=== PATIENT | female | born 1960 | race Caucasian/White ===

== ENCOUNTER 2019-02-09 22:25 | Inpatient (IN) | payer MEDICAID, OTHER ==
--- NOTE | 2019-02-09 22:29 | ED ---
Psych HPI - General Stated Complaint: Mental Health Time Seen by Provider: 02/09/19 22:29 - History of Present Illness Initial Comments: Marah is a 58-year-old female with a long-standing history of bipolar disorder with occasional manic episodes. Patient presents the emergency department today with police escort for evaluation of manic episode. Patient states that she has not slept in 3 nights she's been awake for 4 straight days, she states that she just can't sleep and she is feeling manic. Patient is having difficulty explaining exactly how she is feeling. at bedside states that this is similar to previous manic episodes. Daughter arrived at bedside and states that she believes her mother hasn't been sleeping in his been acting manic. She states her mom just seems to have rapid thoughts and inability to maintain a train of thought. She states that 2 times today her mother put a pot on the stove and turned the fire on but then left the room and forgot about it. In addition she states that at one point her mom used a grape cutter to light of these cardboard began smoking it. Patient reports she may have missed a couple of days of her Depakote. She reports that she otherwise tries to be compliant. She admits to occasionally smoking marijuana but denies any other drug use. - Related Data Home Medications Medication Instructions Recorded Confirmed Divalproex ER [Depakote ER] 1,500 mg PO DAILY 02/09/19 02/09/19 Divalproex Sodium [Depakote ER] 250 mg PO HS 02/09/19 02/09/19 Gabapentin [Neurontin] 300 mg PO BID 02/09/19 02/09/19 Gabapentin [Neurontin] 900 mg PO HS 02/09/19 02/09/19 Gemfibrozil [Lopid] 600 mg PO BID 02/09/19 02/09/19 Levothyroxine Sodium 100 mcg PO DAILY 02/09/19 02/09/19 OLANZapine [ZyPREXA] 5 mg PO HS 02/09/19 02/09/19 OLANZapine [ZyPREXA] 20 mg PO HS 02/09/19 02/09/19 Omeprazole [PriLOSEC] 20 mg PO DAILY 02/09/19 02/09/19 oxyCODONE HCL/ACETAMINOPHEN 1 tab PO Q6HR PRN 02/09/19 02/09/19 [Percocet 10-325 mg] Allergies Allergy/AdvReac Type Severity Reaction Status Date / Time No Known Allergies Allergy Verified 02/09/19 22:41 Review of Systems ROS Statement: Those systems with pertinent positive or pertinent negative responses have been documented in the HPI. ROS Other: All systems not noted in ROS Statement are negative. General Exam - General Exam Comments Initial Comments: Physical Exam GENERAL: Patient is well-developed and well-nourished. Patient is nontoxic and well-hydrated and is in no distress. HENT: Normocephalic, Atraumatic. EYES: PERRL, EOMI PULMONARY: Unlabored respirations. No audible rales rhonchi or wheezing was noted. CARDIOVASCULAR: There is a regular rate and rhythm without any murmurs gallops or rubs. ABDOMEN: Soft and nontender with normal bowel sounds. SKIN: Skin is clear with no lesions or rashes and otherwise unremarkable. : Deferred NEUROLOGIC: Patient is alert and oriented x3 Moving all extremities spontaneously MUSCULOSKELETAL: Normal extremities with adequate strength and full range of motion. No lower extremity swelling or edema. No calf tenderness. PSYCHIATRIC: Patient seems manic, has flight of ideas rapidly fluctuating thoughts Denies any suicidal or homicidal ideations Course Vital Signs 02/09/19 02/10/19 22:29 00:51 Temperature 96.9 F L Pulse Rate 69 77 Respiratory 18 19 Rate Blood Pressure 144/96 132/71 O2 Sat by Pulse 94 L 96 Oximetry Medical Decision Making - Medical Decision Making Patient was seen and evaluated history is obtained from patient, and daughter bedside sinus 58 her old female with a history of bipolar disorder reports she's been compliant with her medications but seems to be manic at this time she's having some rapidly processing thoughts, some thought blocking, memory issues. Patient denies suicidal or homicidal ideations but does appear to be manic. Labs are ordered patient's valproic acid level is within therapeutic range her labs are otherwise relatively unremarkable and the patient is medically cleared for evaluation by EPS she was evaluated by EPS they agree the patient requires inpatient psychiatric evaluation. Patient was petitioned by her daughter I completed the medical certification. Patient be admitted to our psychiatric unit. - Lab Data Result diagrams: 02/09/19 22:50 02/09/19 22:50 Lab Results 02/09/19 02/09/19 02/10/19 Range/Units 22:50 22:50 00:30 WBC 13.7 H (3.8-10.6) k/uL RBC 4.10 (3.80-5.40) m/uL Hgb 13.5 (11.4-16.0) gm/dL Hct 40.5 (34.0-46.0) % MCV 98.8 (80.0-100.0) fL MCH 33.0 (25.0-35.0) pg MCHC 33.4 (31.0-37.0) g/dL RDW 14.7 (11.5-15.5) % Plt Count 374 (150-450) k/uL Neutrophils % 54 % Lymphocytes % 33 % Monocytes % 6 % Eosinophils % 4 % Basophils % 1 % Neutrophils # 7.3 (1.3-7.7) k/uL Lymphocytes # 4.5 (1.0-4.8) k/uL Monocytes # 0.9 (0-1.0) k/uL Eosinophils # 0.6 (0-0.7) k/uL Basophils # 0.1 (0-0.2) k/uL Macrocytosis Slight Sodium 141 (137-145) mmol/L Potassium 4.6 (3.5-5.1) mmol/L Chloride 106 (98-107) mmol/L Carbon Dioxide 23 (22-30) mmol/L Anion Gap 12 mmol/L BUN 15 (7-17) mg/dL Creatinine 1.39 H (0.52-1.04) mg/dL Est GFR (CKD-EPI)AfAm 49 (>60 ml/min/1.73 sqM) Est GFR (CKD-EPI)NonAf 43 (>60 ml/min/1.73 sqM) Glucose 102 H (74-99) mg/dL Calcium 10.2 (8.4-10.2) mg/dL Total Bilirubin 0.7 (0.2-1.3) mg/dL AST 21 (14-36) U/L ALT 11 (9-52) U/L Alkaline Phosphatase 75 (38-126) U/L Total Protein 7.7 (6.3-8.2) g/dL Albumin 4.7 (3.5-5.0) g/dL TSH 1.820 (0.465-4.680) mIU/L Urine Opiates Screen Not Detected (NotDetected) Ur Oxycodone Screen Not Detected (NotDetected) Urine Methadone Screen Not Detected (NotDetected) Ur Propoxyphene Screen Not Detected (NotDetected) Ur Barbiturates Screen Not Detected (NotDetected) Valproic Acid 72.9 ug/mL U Tricyclic Antidepress Detected H (NotDetected) Ur Phencyclidine Scrn Not Detected (NotDetected) Ur Amphetamines Screen Not Detected (NotDetected) U Methamphetamines Scrn Not Detected (NotDetected) U Benzodiazepines Scrn Not Detected (NotDetected) Urine Cocaine Screen Not Detected (NotDetected) U Marijuana (THC) Screen Detected H (NotDetected) Disposition Clinical Impression: Tonya Disposition: TRANSFER TO PSYCH HOSP/UNIT Referrals: Hakeem Kelly MD [Primary Care Provider] - 1-2 days
[2019-02-09 23:10] LABS: Basophils # (A) 0.1 k/uL (0-0.2); Basophils % (A) 1 %; Eosinophils # (A) 0.6 k/uL (0-0.7); Eosinophils % (A) 4 %; HCT 40.5 % (34.0-46.0); HGB 13.5 gm/dL (11.4-16.0); Lymphocytes # (A) 4.5 k/uL (1.0-4.8); Lymphocytes % (A) 33 %; MCHC 33.4 g/dL (31.0-37.0); MCV 98.8 fL (80.0-100.0); Macrocytosis Slight; Mean Platelet Volume 7.8; Monocytes # (A) 0.9 k/uL (0-1.0); Monocytes % (A) 6 %; Neutrophils # (A) 7.3 k/uL (1.3-7.7); Neutrophils % (A) 54 %; Platelet Count 374 k/uL (150-450); RDW 14.7 % (11.5-15.5); WBC 13.7 k/uL (3.8-10.6)
[2019-02-09 23:16] LABS: Albumin 4.7 g/dL (3.5-5.0); Calcium 10.2 mg/dL (8.4-10.2); Total Bilirubin 0.7 mg/dL (0.2-1.3); Total Protein 7.7 g/dL (6.3-8.2)
[2019-02-09 23:21] LABS: Valproic Acid (Depakene) 72.9 ug/mL
[2019-02-09 23:35] LABS: Potassium 4.6 mmol/L (3.5-5.1)
[2019-02-10] MEDS ORDERED: SODIUM CHLORIDE 0.9% 1,000 ML IV ONE (00:21)
[2019-02-10 01:17] LABS: Amphetamine Screen,Urine Not Detected (NotDetected); Barbiturate Screen,Urine Not Detected (NotDetected); Benzodiazepines Screen,Urine Not Detected (NotDetected); Cocaine Screen,Urine Not Detected (NotDetected); Methadone Screen, Urine Not Detected (NotDetected); Opiate Screen,Urine Not Detected (NotDetected); Oxycodone Screen, Urine Not Detected (NotDetected); Phencyclidine Screen,Urine Not Detected (NotDetected); Tricyclic Antidepressant,Urine Detected (NotDetected); Urn Cannabinoid Scrn Detected (NotDetected)
[2019-02-10] MEDS ORDERED: LORazepam 1 MG TAB PO PRN (05:00)
[2019-02-10] MEDS ORDERED: MAG HYDROX/AL HYDROX/SIMETH 30 ML CUP PO PRN (08:00)
[2019-02-10] MEDS ORDERED: ZIPRASIDONE 20 MG VIAL IM PRN (09:00)
[2019-02-10] MEDS ORDERED: MAGNESIUM HYDROXIDE 2,400 MG/10 ML CUP PO PRN (09:00)
[2019-02-10] MEDS: NICOTINE 21MG/24HR PATCH TRANSDERM SCH (10:11)
[2019-02-10] MEDS: ACETAMINOPHEN TAB 325 MG TAB PO PRN ×2 (10:11→16:37)
--- NOTE | 2019-02-10 10:29 | P.HP ---
Psychiatric H&P - . History & Physical: Allergies Allergy/AdvReac Type Severity Reaction Status Date / Time No Known Allergies Allergy Verified 02/09/19 22:41 Vital Signs Temp 96.8 F L 02/10/19 05:07 Pulse 86 02/10/19 05:07 Resp 20 02/10/19 05:07 BP 133/80 02/10/19 05:07 Pulse Ox 96 02/10/19 00:51 Intake & Output 02/09/19 02/10/19 02/10/19 18:59 06:59 18:59 Weight 78.925 kg Laboratory Last Values WBC 13.7 k/uL (3.8-10.6) H 02/09/19 22:50 RBC 4.10 m/uL (3.80-5.40) 02/09/19 22:50 Hgb 13.5 gm/dL (11.4-16.0) 02/09/19 22:50 Hct 40.5 % (34.0-46.0) 02/09/19 22:50 MCV 98.8 fL (80.0-100.0) 02/09/19 22:50 MCH 33.0 pg (25.0-35.0) 02/09/19 22:50 MCHC 33.4 g/dL (31.0-37.0) 02/09/19 22:50 RDW 14.7 % (11.5-15.5) 02/09/19 22:50 Plt Count 374 k/uL (150-450) 02/09/19 22:50 Neutrophils % 54 % 02/09/19 22:50 Lymphocytes % 33 % 02/09/19 22:50 Monocytes % 6 % 02/09/19 22:50 Eosinophils % 4 % 02/09/19 22:50 Basophils % 1 % 02/09/19 22:50 Neutrophils # 7.3 k/uL (1.3-7.7) 02/09/19 22:50 Lymphocytes # 4.5 k/uL (1.0-4.8) 02/09/19 22:50 Monocytes # 0.9 k/uL (0-1.0) 02/09/19 22:50 Eosinophils # 0.6 k/uL (0-0.7) 02/09/19 22:50 Basophils # 0.1 k/uL (0-0.2) 02/09/19 22:50 Macrocytosis Slight 02/09/19 22:50 Sodium 141 mmol/L (137-145) 02/09/19 22:50 Potassium 4.6 mmol/L (3.5-5.1) 02/09/19 22:50 Chloride 106 mmol/L (98-107) 02/09/19 22:50 Carbon Dioxide 23 mmol/L (22-30) 02/09/19 22:50 Anion Gap 12 mmol/L 02/09/19 22:50 BUN 15 mg/dL (7-17) 02/09/19 22:50 Creatinine 1.39 mg/dL (0.52-1.04) H 02/09/19 22:50 Est GFR (CKD-EPI)AfAm 49 (>60 ml/min/1.73 sqM) 02/09/19 22:50 Est GFR (CKD-EPI)NonAf 43 (>60 ml/min/1.73 sqM) 02/09/19 22:50 Glucose 102 mg/dL (74-99) H 02/09/19 22:50 Calcium 10.2 mg/dL (8.4-10.2) 02/09/19 22:50 Total Bilirubin 0.7 mg/dL (0.2-1.3) 02/09/19 22:50 AST 21 U/L (14-36) 02/09/19 22:50 ALT 11 U/L (9-52) 02/09/19 22:50 Alkaline Phosphatase 75 U/L (38-126) 02/09/19 22:50 Total Protein 7.7 g/dL (6.3-8.2) 02/09/19 22:50 Albumin 4.7 g/dL (3.5-5.0) 02/09/19 22:50 TSH 1.820 mIU/L (0.465-4.680) 02/09/19 22:50 Urine Opiates Screen Not Detected (NotDetected) 02/10/19 00:30 Ur Oxycodone Screen Not Detected (NotDetected) 02/10/19 00:30 Urine Methadone Screen Not Detected (NotDetected) 02/10/19 00:30 Ur Propoxyphene Screen Not Detected (NotDetected) 02/10/19 00:30 Ur Barbiturates Screen Not Detected (NotDetected) 02/10/19 00:30 Valproic Acid 72.9 ug/mL 02/09/19 22:50 U Tricyclic Antidepress Detected (NotDetected) H 02/10/19 00:30 Ur Phencyclidine Scrn Not Detected (NotDetected) 02/10/19 00:30 Ur Amphetamines Screen Not Detected (NotDetected) 02/10/19 00:30 U Methamphetamines Scrn Not Detected (NotDetected) 02/10/19 00:30 U Benzodiazepines Scrn Not Detected (NotDetected) 02/10/19 00:30 Urine Cocaine Screen Not Detected (NotDetected) 02/10/19 00:30 U Marijuana (THC) Screen Detected (NotDetected) H 02/10/19 00:30 02/10/19 10:19 IDENTIFYING DATA: This patient is a 58-year-old female who was admitted to the mental health unit through the emergency room on a petition and clinical certificate for symptoms of barbara and psychosis. HPI: He patient presents with a petition completed by her daughter stating "misplacing objects, lighting stove and leaving unattended, lighting paper from a candle and attempting to smoke". The patient's carries a diagnosis of bipolar 1 disorder. She states that she hasn't slept in 3 days her thoughts are racing. She describes her energy is adequate appetite is adequate. She endorses tearfulness once a week. She is reporting no suicidal or homicidal ideation intent or plan. She endorses an auditory hallucination described as hearing the radio but can't make out any words. She denies any command auditory hallucinations. She reports no visual hallucinations. She indicates feeling safe here in the hospital. She was observed throughout the morning walking around the unit appearing confused caring a handful of papers and 2 cups. She spontaneously makes random statements throughout our interaction. She endorses a history of manic episodes in the past. She resides with her and states that she has no firearms at home. PAST PSYCHIATRIC HISTORY: She reports a history of multiple inpatient psychiatric admissions greater than 10. She is unaware of when the last admission was. She endorses no history of suicide attempts. Outpatient care is at [facility]. She works with Wanda Syeda for medication management. She is currently on Zyprexa 25 mg at bedtime Depakote ER 1750 mg at bedtime. She indicates having some difficulties maintaining her medications every night. Her Depakote level was drawn and was found to be 72.9. Liver enzymes within normal limits. She states she was on lithium in the past but this caused what appears to be diabetes insipidus. PMH: History of knee injury at age 16 with subsequent pain she apparently sees Dr. 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 She reports no use of alcohol however she does have a history of DUI in 2003. FAMILY PSYCHIATRIC HISTORY: She states that her identical twin sister has bipolar disorder another sister has bipolar disorder as well as a niece, no suicides in the family FAMILY CHEMICAL DEPENDENCY HISTORY: Unknown SOCIAL HISTORY: The patient is 58 years old she states she's been for 7- 8 months but has been with her for 11 years. She states she has 3 adult children ages 24, 26, 28. She resides with her . She is unemployed. She has no history of experience. She graduated high school and earned a bachelors in psychology at [employer]. She is originally from [place]. She reports no abuse history, she only reports the DUI in 2003 in terms of legal history. MENTAL STATUS EXAM: The patient is a disheveled appearing female. She is dressed in hospital gowns. She is wearing eyeglasses. Her hair is pulled back. Eye contact and be staring in nature. Affect is bland. She frequently manipulates the papers that she is holding at times she drops them. She appears distracted and disorganized. She endorses racing thoughts. She reports her mood is "fine". She lacks insight into why she was admitted in states because my wanted. She is reporting no suicidal or homicidal thoughts. She endorses an auditory hallucination that appears to be chronic in the form of hearing "the radio". She states that she does not make out any words and she is experiencing no command auditory hallucinations. She is reporting no visual hallucinations. She indicates feeling safe here in the hospital and denies having any specific delusions but she appears to be an invalid historian at this time. Insight and judgment are impaired. She states that she was to be discharged within 72 hours. She demonstrates no verbal or physical aggressiveness. She does have spontaneous speech she demonstrates loose associations and flight of ideas at times. She demonstrates no involuntary repetitive movements. STRENGTHS/WEAKNESSES: Strengths: [facility] health follow-up weaknesses: Acute symptoms of barbara INTELLECTUAL FUNCTIONING: Average IMPRESSIONS: [] 1. Bipolar 1 disorder most recent manic with psychosis, cannabis use disorder, rule out opiate use disorder PLAN: The patient has been admitted to the mental health unit on a petition and clinical certificate. She is not able to discuss the reasons for this admission or her treatment options and unreliable rational manner. I will complete a second clinical certificate. She will be seen by internal medicine for routine history and physical exam. She will be seen by social work for a psychosocial assessment and begin discharge planning. We will monitor her for safety and encourage participation in the milieu. We will involve her family in treatment and discharge planning as she will allow.
--- NOTE | 2019-02-10 20:30 | P.MDCNMH ---
History of Present Illness H&P Date: 02/10/19 Chief Complaint: Medical management 58-year-old female with history of bipolar disorder When asked patient is not sure why she is in the hospital she thinks probably she is going through a manic episodes and family has brought her to the hospital. Otherwise she is feeling fine she denies any chest pain trouble breathing shortness of breath fevers or chills eyes any sore throat abdominal pain back pain. He denies any GI bleeding. She reports that she is urinating fine denies any hematuria dysuria frequency. Patient reports history of hypothyroidism compliant with her medications. And history of GERD taking omeprazole. Currently patient denies any suicidal or homicidal ideation. Per ER notes daughter has brought the patient because she hasn't slept for 3 nights, and having rapid thoughts which is typical of her manic episodes. She brought her for psychiatric evaluation Review of Systems Pertinent positives as noted in HPI. All other systems were reviewed and are negative Past Medical History Past Medical History: Thyroid Disorder Additional Past Medical History / Comment(s): hypothyroidism History of Any Multi-Drug Resistant Organisms: None Reported Past Surgical History: Back Surgery, Orthopedic Surgery, Tonsillectomy, Tubal Ligation Additional Past Surgical History / Comment(s): dentures, knee surgery Past Psychological History: Anxiety, Bipolar, Depression Smoking Status: Current every day smoker Past Alcohol Use History: None Reported Past Drug Use History: Marijuana, Prescription Drug Abuse - Past Family History Family Additional Family Medical History / Comment(s): Positive history of bipolar disorder multiple family members Medications and Allergies Home Medications Medication Instructions Recorded Confirmed Type Divalproex ER [Depakote ER] 1,500 mg PO DAILY 02/09/19 02/09/19 History Divalproex Sodium [Depakote ER] 250 mg PO HS 02/09/19 02/09/19 History Gabapentin [Neurontin] 300 mg PO BID 02/09/19 02/09/19 History Gabapentin [Neurontin] 900 mg PO HS 02/09/19 02/09/19 History Gemfibrozil [Lopid] 600 mg PO BID 02/09/19 02/09/19 History Levothyroxine Sodium 100 mcg PO DAILY 02/09/19 02/09/19 History OLANZapine [ZyPREXA] 5 mg PO HS 02/09/19 02/09/19 History OLANZapine [ZyPREXA] 20 mg PO HS 02/09/19 02/09/19 History Omeprazole [PriLOSEC] 20 mg PO DAILY 02/09/19 02/09/19 History oxyCODONE HCL/ACETAMINOPHEN 1 tab PO Q6HR PRN 02/09/19 02/09/19 History [Percocet 10-325 mg] Allergies Allergy/AdvReac Type Severity Reaction Status Date / Time No Known Allergies Allergy Verified 02/09/19 22:41 Physical Exam Vitals: Vital Signs Temp Pulse Pulse Resp BP BP Pulse Ox 02/10/19 05:07 96.8 F L 86 20 133/80 02/10/19 00:51 77 19 132/71 96 02/09/19 22:29 96.9 F L 69 18 144/96 94 L Constitutional: No acute distress, conversant, pleasant Eyes: Anicteric sclerae, moist conjunctiva, no lid-lag Pupils equal round reactive to light ENMT: NC/AT Oropharynx clear, no erythema, exudates Neck: Supple, FROM, no masses, or JVD No carotid bruits No thyromegaly Lungs: Clear to auscultation Clear to percussion Normal respiratory effort, no accessory muscle use Cardiovascular: Heart regular in rate and rhythm, Systolic murmur, no gallops, or rubs No peripheral edema Abdominal: Soft Nontender, no guarding, rebound or rigidity Abdomen moving with respiration Normoactive bowel sounds No hepatomegaly, No splenomegaly No palpable mass No abdominal wall hernia noted Skin: Normal temperature, tone, texture, turgor No induration No subcutaneous nodules No rash, lesions No ulcers Extremities: No digital cyanosis No clubbing Pedal pulses intact and symmetrical Radial pulses intact and symmetrical No calf tenderness Psychiatric: Alert and oriented to person, place and time Appropriate affect fair judgment Neuro Muscles Strength 5/5 in all 4 extremities Sensation to light touch grossly present throughout Cranial nerves II-XII grossly intact No focal sensory deficits Lymphatics: no palpable cervical or supraclavicular , or inguinal lymph nodes Cranial Nerve Examination - Cranial Nerves Cranial Nerve II- Optic: Intact Cranial Nerve III- Oculomotor: Intact Cranial Nerve IV- Trochlear: Intact Cranial Nerve V- Trigeminal: Intact Cranial Nerve - Abducens: Intact Cranial Nerve VII- Facial: Intact Cranial Nerve VIII- Auditory: Intact Cranial Nerve IX- Glossopharyngeal: Intact Cranial Nerve X- Vagus: Intact Cranial Nerve XI- Accessory: Intact Cranial Nerve XII- Hypoglossal: Intact Results CBC & Chem 7: 02/09/19 22:50 02/09/19 22:50 Labs: Abnormal Lab Results - Last 24 Hours (Table) 02/09/19 02/09/19 02/10/19 Range/Units 22:50 22:50 00:30 WBC 13.7 H (3.8-10.6) k/uL Creatinine 1.39 H (0.52-1.04) mg/dL Glucose 102 H (74-99) mg/dL U Tricyclic Antidepress Detected H (NotDetected) U Marijuana (THC) Screen Detected H (NotDetected) Assessment and Plan Assessment: 58-year-old female with history of bipolar disorder, patient was brought into the hospital for a manic episode. Medicine was consulted for management of medical conditions, patient has history of hypothyroidism. Her labs showed elevated creatinine level however nonoliguric at this point. Plan: Acute kidney injury most likely secondary to prerenal ATN Avoid nephrotoxic meds Encourage by mouth hydration Monitor urine output Follow-up renal function Slightly elevated white count No evidence of focus of infection Continue to monitor for any fevers Manic episodes with history of bipolar disorder Management per psych Hypothyroidism Resume levothyroxine GERD Continue with PPI Low risk for DVT, patient is ambulatory Follow-up BMP in the morning Thank you for allowing us to participate in the care of this patient. Do not hesitate to contact us with questions. Someone can be reached from the [facility] hospitalist group at all hours of the day at [phone].
[2019-02-10] MEDS: DIVALPROEX ER 500 MG TAB.ER.24H PO SCH (22:06)
[2019-02-10] MEDS: OLANZapine 10 MG TAB PO SCH (22:06)
[2019-02-11] MEDS: LEVOTHYROXINE 100 MCG TAB PO SCH (05:40)
[2019-02-11] MEDS: NICOTINE 21MG/24HR PATCH TRANSDERM SCH (08:34)
[2019-02-11] MEDS: PANTOPRAZOLE 40 MG TABLET PO SCH (08:34)
--- NOTE | 2019-02-11 09:15 | P.PN ---
Progress Note - Text Interval history: The patient's found the hallway she follows me to an interview room. She indicates her mood is better. She states that she slept 8 hours last night staff reported she slept 7. She reports that she also slept most of the day yesterday. She reports her appetite is stable. She asks to have the Neurontin and Percocet restarted. We discussed that we are trying to avoid any use of opiates. The Neurontin will be held as her creatinine was elevated. She reports a reduction in racing thoughts. She inquires as to when she will be discharged. Mental status exam: The patient is alert she is mildly disheveled she is wearing eyeglasses she is dressed in hospital gowns. She is carrying a cup of water. Speech is fluent spontaneous nonpressured. She indicates her mood is fine. Affect is constricted. She is oriented to person place and date. When asked to name the months of the year backwards she completes the task however she omits April. She reports no suicidal or homicidal thoughts she reports no auditory or visual hallucinations or specific delusions. She may be underreporting symptoms. She demonstrated no tangential thinking loose associations or flight of ideas during our brief interaction. She demonstrated no verbal or physical aggressiveness she demonstrates no involuntary repetitive movements. Insight and judgment improving. Plan: The patient will continue on her current psychotropic medication. She is demonstrating improvement compared to yesterday most likely due to being able to sleep. Her symptoms of barbara/psychosis could've been precipitated/exacerbated by use of marijuana and her opiate analgesics. We will continue the Depakote ER and Zyprexa as written. We will continue to follow her progress. I will confer with the treatment team to get their opinion regarding her behavior over the last 24 hours. We will monitor for safety and encourage participation in the mi lieu. Vital signs reviewed.
[2019-02-11 09:16] LABS: Calcium 9.9 mg/dL (8.4-10.2); Potassium 4.6 mmol/L (3.5-5.1)
[2019-02-11 18:27] LABS: Hemoglobin A1C 5.7 % (4.0-6.0)
[2019-02-11] MEDS: DIVALPROEX ER 500 MG TAB.ER.24H PO SCH (20:48)
[2019-02-11] MEDS: OLANZapine 10 MG TAB PO SCH (20:49)
[2019-02-12] MEDS: LEVOTHYROXINE 100 MCG TAB PO SCH (06:27)
[2019-02-12] MEDS: NICOTINE 21MG/24HR PATCH TRANSDERM SCH (08:29)
[2019-02-12] MEDS: PANTOPRAZOLE 40 MG TABLET PO SCH (08:29)
--- NOTE | 2019-02-12 09:46 | P.PN ---
Progress Note - Text Interval history: The patient is found in her room she follows me to an interview room. She reports her mood is fine. She indicates she slept all night however staff recorded she slept 4 hours. She feels that that was an error. Appetite stable. She describes a good visit with her . We discussed drawing her Depakote level tomorrow morning. She states that she had a headache yesterday and did not attend many groups but will attend today. Mental status exam: The patient is alert. She is an overweight female appearing her stated age. She is dressed in hospital gowns. Eye contact is adequate. Speech is fluent and spontaneous nonpressured. She reports her mood is improved. She is reporting no suicidal ideation intent or plan. She reports no racing thoughts. She is seated calmly in the chair. She is reporting no auditory or visual hallucinations. She demonstrates no verbal or physical aggressiveness she demonstrates no involuntary repetitive movements. Insight and judgment improving. She appears to be following the conversation appropriately. Plan: The patient appears to be clinically stabilizing. We will redraw her Depakote level the morning. We will consider discharging her tomorrow if clinically appropriate. Social work will arrange a support meeting. She is instructed to attend groups today.
[2019-02-12] MEDS: FENOFIBRATE 160 MG TAB PO SCH (09:52)
[2019-02-12] MEDS: ACETAMINOPHEN TAB 325 MG TAB PO PRN (19:38)
[2019-02-12] MEDS: OLANZapine 10 MG TAB PO SCH (21:06)
[2019-02-12] MEDS: DIVALPROEX ER 500 MG TAB.ER.24H PO SCH (21:07)
[2019-02-13] MEDS: LEVOTHYROXINE 100 MCG TAB PO SCH (06:29)
[2019-02-13 07:11] VITALS: BP 113/55; PULSE 82; RESP 16; TEMP 97.8
[2019-02-13] MEDS: PANTOPRAZOLE 40 MG TABLET PO SCH (08:48)
--- NOTE | 2019-02-13 09:32 | P.DS ---
Providers Date of admission: 02/10/19 04:11 Expected date of discharge: 02/13/19 Attending physician: Anam Dueñas Consults: 02/10/19 04:19 Consult Physician Routine Consulting Provider: Calderon Armendariz Consult Reason/Comments: H & P and medical management Do you want consulting provider notified?: Already Contacted Primary care physician: Hakeem Kelly - Discharge Diagnosis(es) (1) Severe manic bipolar 1 disorder with psychotic behavior Current Visit: Yes Status: Acute Priority: High (2) Cannabis use disorder, mild, abuse Current Visit: Yes Status: Acute Priority: Medium Hospital Course: Brief summary admission note: This patient is a 58-year-old female who was admitted to the mental health unit through the emergency room on the petition noting symptoms of barbara and psychosis. The patient was petition by her daughter as the patient was demonstrating bizarre behavior and unsafe behavior. She is known to have a diagnosis of bipolar 1 disorder. She reported she had not slept in 3 days and her thoughts are racing. She reported auditory hallucination describing radio music but could not make out any words. For full details please refer to my psychiatric evaluation dated 02/10/2019. Summary of hospital course: The patient was admitted to the mental health unit in voluntarily. A second clinical certificate was completed. She participated in a deferral conference yesterday and deferred a court hearing. We continued/restarted her Zyprexa 20 mg at bedtime Depakote ER 1750 mg at bedtime. I was able to review her last medication review note from [facility]. The patient was seen by internal medicine for routine history and physical exam. Most likely due to dehydration her creatinine was elevated. Her Neurontin was held. The patient demonstrated a quick resolution of her manic and psychotic behavior. On the mental health unit we did not give any opiate analgesics. She has been ambulatory and indicated no physical pain. It's recommended that she stay off of the opiate analgesics and refrain from cannabis use. She does not feel that she needs inpatient chemical dependency treatment to accomplish that goal. She reports no suicidal or homicidal thoughts. Her will participate in a support meeting. He did visit her on Saturday and felt that she was much improved. Mental status exam: The patient is alert she is dressed in hospital gowns hygiene grooming adequate. Speech is fluent and spontaneous nonpressured. She reports no suicidal or homicidal ideation intent or plan. She demonstrates no tangential thinking loose associations or flight of ideas. She does not appear hypomanic or manic at this time. She is reporting no auditory or visual hallucinations or any specific delusions. There is no observed evidence of psychosis. She is oriented to person place and date. She demonstrates no verbal or physical aggressiveness. She demonstrates no involuntary repetitive movements. Insight and judgment are much improved. She demonstrates future oriented thinking. Affect is constricted but expressive at times. Impressions 1. Bipolar 1 disorder most recent manic with psychosis, cannabis use disorder, rule out opiate use disorder Plan: The patient will be discharged mental health unit today to return home residing with her . She will continue following with her clinicians at [facility]. Social work will verify her appointment date. She is encouraged to follow-up with her primary care physician for further monitoring of her kidney function. She is instructed to abstain from using the Neurontin until cleared by her primary care physician. She will continue on Depakote ER 1750 mg at bedtime Zyprexa 20 mg at bedtime. At this time there is no imminent safety risk she is appropriate for transition back to outpatient care. She is instructed to return to the hospital with any acute safety concerns. She presen roberto with severe symptoms that cleared quickly possibly suggesting some contribution from the marijuana and possibly opiate analgesics. She did not require opiate analgesics on the mental health unit for pain management and I recommend that she abstain from those upon discharge. We discussed that marijuana as well could contribute to mood symptoms and could possibly precipitate symptoms of psychosis and ultimately elevate her safety risk. Patient Condition at Discharge: Stable Plan - Discharge Summary New Discharge Prescriptions: New Nicotine 21Mg/24Hr Patch [Habitrol] 1 patch TRANSDERM DAILY #14 patch Continue Omeprazole [PriLOSEC] 20 mg PO DAILY Gemfibrozil [Lopid] 600 mg PO BID Levothyroxine Sodium 100 mcg PO DAILY Divalproex ER [Depakote ER] 1,500 mg PO DAILY #45 tab.er.24h Divalproex Sodium [Depakote ER] 250 mg PO HS #30 tab.er.24h OLANZapine [ZyPREXA] 20 mg PO HS #30 tablet Discontinued OLANZapine [ZyPREXA] 5 mg PO HS Gabapentin [Neurontin] 300 mg PO BID Gabapentin [Neurontin] 900 mg PO HS oxyCODONE HCL/ACETAMINOPHEN [Percocet 10-325 mg] 1 tab PO Q6HR PRN PRN Reason: Pain Discharge Medication List Gemfibrozil [Lopid] 600 mg PO BID 02/09/19 [History] Levothyroxine Sodium 100 mcg PO DAILY 02/09/19 [History] Omeprazole [PriLOSEC] 20 mg PO DAILY 02/09/19 [History] Divalproex ER [Depakote ER] 1,500 mg PO DAILY #45 tab.er.24h 02/13/19 [Rx] Divalproex Sodium [Depakote ER] 250 mg PO HS #30 tab.er.24h 02/13/19 [Rx] Nicotine 21Mg/24Hr Patch [Habitrol] 1 patch TRANSDERM DAILY #14 patch 02/13/19 [Rx] OLANZapine [ZyPREXA] 20 mg PO HS #30 tablet 02/13/19 [Rx] Follow up Appointment(s)/Referral(s): [facility]] - 02/18/19 12:30 pm (02/18/19 @ 12:30 pm w/ Jorge Santos 02/25/19 @ 1 pm w/ Mary) Hakeem Kelly MD [Primary Care Provider] - 1-2 days Patient Instructions/Handouts: Mood Disorders (DC) Activity/Diet/Wound Care/Special Instructions: Activity and diet as tolerated. No guns or weapons in the home. No drugs or alcohol not prescribed by physician. Take all medications as prescribed. Attend all follow up appointments as scheduled. If in need of medication refills, please go to your primary care physician, or to your out patient psychiatric provider. If in crisis, please call , or go to the nearest ER.
[2019-02-13] MEDS: NICOTINE 21MG/24HR PATCH TRANSDERM SCH (09:35)
[2019-02-13] MEDS: FENOFIBRATE 160 MG TAB PO SCH (09:35)
[2019-02-13 12:07] LABS: Valproic Acid (Depakene) 117.8 ug/mL
== END 2019-02-13 11:20 | disposition home or self-care (01) | DRG 897 ==
LOC: EC 22:25 → 3MHU 02-10 04:11
PROVIDERS: ADMIT Psychiatry & Neurology Psychiatry; ATTEND Psychiatry & Neurology Psychiatry
DX: F12.19 Cannabis abuse with unspecified cannabis-induced disorder (principal); F31.2 Bipolar disorder, current episode manic severe with psychotic features; F11.19 Opioid abuse with unspecified opioid-induced disorder; E03.9 Hypothyroidism, unspecified; E78.5 Hyperlipidemia, unspecified; E86.0 Dehydration; Z79.890 Hormone replacement therapy; Z79.899 Other long term (current) drug therapy; Z81.8 Family history of other mental and behavioral disorders
CPT/HCPCS: 36415; 80048; 80053; 80061; 80164; 80306; 82075; 83036; 84443; 84450; 84460; 85025; 96360; 99285

== ENCOUNTER → 2019-07-28 | Outpatient (CLI) | payer OTHER ==
[2019-07-28 13:02] LABS: Basophils # (A) 0.1 k/uL (0-0.2); Basophils % (A) 1 %; Eosinophils # (A) 0.7 k/uL (0-0.7); Eosinophils % (A) 7 %; HCT 40.6 % (34.0-46.0); HGB 13.2 gm/dL (11.4-16.0); Lymphocytes # (A) 3.3 k/uL (1.0-4.8); Lymphocytes % (A) 32 %; MCH 33.6 pg (25.0-35.0); MCHC 32.6 g/dL (31.0-37.0); MCV 103.1 fL (80.0-100.0); Macrocytosis Moderate; Mean Platelet Volume 6.5; Monocytes # (A) 0.6 k/uL (0-1.0); Monocytes % (A) 6 %; Neutrophils # (A) 5.6 k/uL (1.3-7.7); Neutrophils % (A) 53 %; Platelet Count 287 k/uL (150-450); RBC 3.93 m/uL (3.80-5.40); RDW 15.6 % (11.5-15.5); WBC 10.5 k/uL (3.8-10.6)
[2019-07-28 18:33] LABS: ALT <8 U/L (8-44); AST 11 U/L (13-35); African American GFR (CKD) 72.9 (60.0-200.0); Albumin/Globulin Ratio 2.37 (1.60-3.17); Alkaline Phosphatase 78 U/L (41-126); Bilirubin, Conjugated <0.20 mg/dL (0.20-0.40); Cholesterol 219 mg/dL (0-200); Globulin 1.9 g/dL (1.6-3.3); Glucose 87 mg/dL (70-110); Total Bilirubin 0.2 mg/dL (0.3-1.2); Total Protein 6.4 g/dL (6.2-8.2)
[2019-07-28 22:27] LABS: Hemoglobin A1C 5.5 % (4.0-6.0)
== END | disposition home or self-care (01) ==
LOC: LABWHC1 10:30
PROVIDERS: ATTEND Nurse Practitioner Family
DX: Z51.81 Encounter for therapeutic drug level monitoring (principal); Z79.899 Other long term (current) drug therapy
CPT/HCPCS: 36415; 80061; 80076; 80164; 80299; 82565; 82947; 83036; 84520; 85025

== ENCOUNTER → 2020-09-27 | Outpatient (CLI) | payer OTHER ==
[2020-09-27 16:34] LABS: Hemoglobin A1C 5.7 % (4.0-6.0)
[2020-09-27 16:57] LABS: ALT 9 U/L (8-44); AST 15 U/L (13-35); African American GFR (CKD) 64.5 (60.0-200.0); Albumin/Globulin Ratio 2.42 (1.60-3.17); Alkaline Phosphatase 94 U/L (41-126); Bilirubin, Conjugated <0.20 mg/dL (0.20-0.40); Chol/HDL Ratio 3.36; Cholesterol 195 mg/dL (0-200); Globulin 1.9 g/dL (1.6-3.3); Glucose 93 mg/dL (70-110); LDL Cholesterol,Calculated 106.6 mg/dL (0.0-131.0); Non-African American GFR(CKD) 55.7 (60.0-200.0); Total Bilirubin 0.2 mg/dL (0.2-1.2); Total Protein 6.5 g/dL (6.2-8.2)
== END | disposition home or self-care (01) ==
LOC: LABWHC1 08:30
PROVIDERS: ATTEND Nurse Practitioner Family
DX: Z51.81 Encounter for therapeutic drug level monitoring (principal); Z79.899 Other long term (current) drug therapy
CPT/HCPCS: 36415; 80061; 80076; 80164; 82565; 82947; 83036; 84439; 84443; 84520

== ENCOUNTER → 2023-10-08 | Outpatient (CLI) | payer OTHER ==
[2023-10-08 10:37] VITALS: BP 142/89; PULSE 79; RESP 16; TEMP 98.7
--- NOTE | 2023-10-08 12:59 | P.PAINPG ---
PQRS Measure Charge Sheet Comment: HISTORY OF PRESENT ILLNESS: A 62 yr old female w at side as a referral from Dr Hdz presents today w severe and chronic L knee pain x 48 yrs secondary to DJD for evaluation. Pt states pain level is provoked at 9/10 in intensity, constant, localized in the L knee, achy in character without occasional shooting pain. Pain is provoked by weight bearing activity. Pain is alleviated by injections by Dr Odonnell (Neurologist), heat, medications (Percocet 10/325mg #120), heating pad use, massage and rest. Pt is only interested in receiving Percocet 10/325mg. PMH: OA, Hypothyroid Disorder, Bipolar/ MDD/ Anxiety PSH: Lumbar Surgery (1976), Denture Use, L Knee Arthroscopy (2002, 2003), Tonsillectomy, Oophorectomy (2008), Tubal Ligation, Anal Fissurectomy, Cholecystectomy, Colonoscopy, L Femur Repair (1976), SH: Daily tobacco use, No ETOH abuse, Hx of Opiate abuse, Cannabis use FH: Multiple family members w Bipolar Disorder All: See list Meds: See list REVIEW OF ORGAN SYSTEMS: CONSTITUTIONAL: No fevers or chills. No recent weight loss. NEUROLOGICAL: + numbness and tingling along the distal extremities. No seizure disorders or headaches. MUSCULOSKELETAL: + pain PSYCHIATRIC: Denies current depression or suicidal thoughts. Physical Examinations : Constitutional : Cooperative , not in acute distress . Neurologic : Cranial nerve II to XII intact. No focal neurological deficits. Psychiatric : alert & oriented x 3. Matching mood & appropriate affect. Judgment & insight intact. Musculoskeletal : Cervical Spine Motor strength in the deltoid and biceps: Normal right side. Normal Left side Motor strength biceps and the wrist extensors: Normal right side . Normal left side Motor strength in the triceps muscle: Normal right side. Normal left side Deep tendon reflexes: Normal at the biceps. Normal at Brachioradialis. Normal at triceps Vertebral body tenderness to deep palpation over Cervical facet loading test: positive bilaterally Spurling test: positive bilaterally Neck distraction test: positive bilat erally Alcie sign: positive bilaterally Lumbar spine +L peripatellar TTP, No edema, No erythema, No joint laxity Motor strength lower extremities ,thigh and legs 5/5 Right side , 5/5 Left side Deep tendon reflexes : Normal Knee Jerk. Normal Ankle Jerk Vertebral body tenderness over Carrera Test positive Lumbar facet Loading Test: positive Right / positive Left Range of motion of the lumbar spine Flexion 30 degrees, extension 10 degrees Straight Leg Raise test: Left/ Right positive at degrees Nikole test: positive right / positive left. Severe tenderness over the Sacroiliac joint on the Right / Left sides Gaenslen test: positive bilaterally Seated flexion test: positive bilaterally. Sacral spine : Severe tenderness over the Sacroiliac joint: right side / left side Range of motion: Flexion of the lumbar spine <60 degrees Range of motion: Extension of the lumbar spine <20 degrees Gaenslen's Test positive Nikole test: positive right side / left side Thigh Thrust Test Sacral Thrust Test Imaging: None on file Assessment/ Plan : L Knee DJD Pt stepped out of exam room quickly upon learning she will not receive narcotic medications today. All questions answered. I have spent greater than 30 minutes on patient care today. Dr Acosta was available by phone for the evaluation of this patient. The time was used to review the medical records including relevant urine studies and Prescription history (MAPs), review of the available imaging, evaluation and examination of the patient, coordination of care with the medical staff and if applicable referring physicians, as well as creation of the medical record PQRS Narrative: Smoking Status Current every day smoker Home Medications: Ambulatory Orders Levothyroxine Sodium 100 mcg PO DAILY 02/09/19 Omeprazole [PriLOSEC] 20 mg PO DAILY 02/09/19 gemfibroziL [Lopid] 600 mg PO BID 02/09/19 Divalproex ER [Depakote ER] 1,500 mg PO DAILY #45 tab.er.24h 02/13/19 Divalproex Sodium [Depakote ER] 250 mg PO HS #30 tab.er.24h 02/13/19 Nicotine 21Mg/24Hr Patch [Habitrol] 1 patch TRANSDERM DAILY #14 patch 02/13/19 OLANZapine [ZyPREXA] 20 mg PO HS #30 tablet 02/13/19 Controlled Substance Measures - Controlled Substance Measures Is patient prescribed a controlled substance at discharge?: No
== END ==
LOC: PNWHC3 09:51
PROVIDERS: ATTEND Specialist
DX: M17.12 Unilateral primary osteoarthritis, left knee (principal); E03.9 Hypothyroidism, unspecified; F31.9 Bipolar disorder, unspecified; F41.9 Anxiety disorder, unspecified; F12.90 Cannabis use, unspecified, uncomplicated; F11.10 Opioid abuse, uncomplicated; F17.200 Nicotine dependence, unspecified, uncomplicated; Z79.890 Hormone replacement therapy
CPT/HCPCS: 99211